=== PATIENT | female | born 1980 | race Caucasian/White ===

== ENCOUNTER 2017-12-25 10:57 | Emergency (ER) | payer SELFPAY ==
[~2017-12-25] VITALS: Ht 175.3 cm; Wt 118.2 kg
[2017-12-25 10:58] VITALS: BP 128/80
[2017-12-25] MEDS ORDERED: BUPR100 PO (11:05)
== END 2017-12-25 11:57 | disposition left against medical advice (07) ==
LOC: EMS 10:59
DX: M79.605 Pain in left leg (principal); F32.9 Major depressive disorder, single episode, unspecified; Z53.21 Procedure and treatment not carried out due to patient leaving prior to being seen by health care provider